=== PATIENT | male | born 1970 ===

== ENCOUNTER 2022-10-05 06:09 | Inpatient (IN) ==
[~2022-10-05 06:09] MED LIST: Buffered Lidocaine 1% SYRIN 1 ml INTRADERM ONE; Ertapenem 1 GM in NS 0.9% 50 ML BAG IVPB SCH; Lactated Ringers 1000 ml BAG 1,000 ML IV SCH; Naloxone 0.4 mg VIAL 0.4 mg/ml 1 ml VIAL IV PRN; Ondansetron 4 mg VIAL 2 MG/ML 2 ml VIAL IV PRN; Prochlorperazine 5 mg/ml 2 ml VIAL (10 mg) IV PRN
[2022-10-05] MEDS ORDERED: Bupivacaine 0.5% SDV PF 30ML VIAL ONE (07:08)
[2022-10-05] MEDS ORDERED: Propofol 10 MG/ML 20 ML BTL ONE (07:17)
[2022-10-05] MEDS ORDERED: Lidocaine 2% PF 5 ML VIAL ONE (07:17)
[2022-10-05] MEDS ORDERED: fentaNYL 100 mcg/2 ml 50 MCG/ML VIAL ONE ×2 (07:18→12:19)
[2022-10-05] MEDS ORDERED: Rocuronium 50 mg VIAL 10 mg/ml 5 ml VIAL (50 mg) ONE ×3 (07:18→10:26)
[2022-10-05] MEDS ORDERED: Midazolam 2 mg/2 ml VIAL 1 mg/ml 2 ml VIAL (2 mg) ONE (07:26)
[2022-10-05] MEDS ORDERED: Dexamethasone IV 4 MG/ML VIAL 1 ml VIAL ONE ×2 (08:13)
[2022-10-05] MEDS ORDERED: Acetaminophen IV 1 GM/100ML 1,000 MG/100 ML BAG IV ONE (08:28)
[2022-10-05] MEDS ORDERED: Labetalol IV 5 MG/ML 20 ml VIAL ONE (08:31)
[2022-10-05] MEDS ORDERED: HYDROmorphone 0.5 MG/0.5 ML SYRINGE ONE (08:36)
[2022-10-05] MEDS ORDERED: Ondansetron 4 mg VIAL 2 MG/ML 2 ml VIAL ONE ×2 (09:53→12:30)
[2022-10-05] MEDS: fentaNYL 100 mcg/2 ml 50 MCG/ML VIAL IV PRN ×2 (12:22→12:39)
[2022-10-05] MEDS ORDERED: Acetaminophen IV 1 GM/100ML 1,000 MG/100 ML BAG IV SCH (12:30)
[2022-10-05] MEDS ORDERED: Prochlorperazine 5 mg/ml 2 ml VIAL (10 mg) ONE (12:44)
[2022-10-05] MEDS ORDERED: HYDROmorphone 1 MG/1 ML SYRINGE ONE (12:59)
[2022-10-05] MEDS: HYDROmorphone 1 MG/1 ML SYRINGE IV PRN ×3 (13:00→13:21)
[2022-10-05] MEDS ORDERED: Metoclopramide 5 MG/ML VIAL (10 mg) ONE (13:44)
[2022-10-05] MEDS ORDERED: Scopolamine 1 mg/72hr PATCH ONE (14:18)
[2022-10-05] MEDS: Lactated Ringers 1000 ml BAG 1,000 ML IV SCH (15:08)
[2022-10-05] MEDS: Heparin 5000 UNITS/ML 1 mL VIAL SUBCUT SCH ×2 (15:13→22:30)
[2022-10-05] MEDS: HYDROmorphone 1 MG/1 ML SYRINGE IV SLOW PU PRN ×2 (15:26→20:52)
[2022-10-05] MEDS ORDERED: Metoclopramide 5 MG/ML VIAL (10 mg) IV SLOW PU ONE (15:45)
[2022-10-05] MEDS: Acetaminophen IV 1 GM/100ML 1,000 MG/100 ML BAG IV SCH ×2 (16:07→22:33)
[2022-10-05 22:13] LABS: High Sensitivity Troponin 1 Hr 5 pg/mL (<20)
[2022-10-05] MEDS ORDERED: Al Hydrox/Mg Hydrox/Simet LIQ 30 ML UDC PO PRN (23:42)
[2022-10-06] MEDS: Lactated Ringers 1000 ml BAG 1,000 ML IV SCH (02:52)
[2022-10-06] MEDS: Acetaminophen IV 1 GM/100ML 1,000 MG/100 ML BAG IV SCH ×5 (03:14→23:41)
[2022-10-06] MEDS: Heparin 5000 UNITS/ML 1 mL VIAL SUBCUT SCH (05:35)
[2022-10-06] MEDS: HYDROmorphone 1 MG/1 ML SYRINGE IV SLOW PU PRN (05:37)
[2022-10-06 05:55] LABS: ABS Lymphocytes 1.7 10^3/ul (1.0-4.8); ABS Monocytes 1.1 10^3/ul (0-0.8); ABS Neutrophils 9.2 10^3/ul (1.5-7.7); Eosinophil % 0.1 %; Hematocrit 38 % (42-52); Hemoglobin 12.8 g/dL (14.0-18.0); Lymphocyte % 14.2 %; Mean Corpuscular HGB Conc 34 g/dL (31-36); Mean Corpuscular Hemoglobin 30 pg (27-31); Mean Corpuscular Volume 87 fL (80-94); Mean Platelet Volume 7.8 fL (7.4-10.4); Nucleated Red Blood Cells % 0.1; Platelet Count 213 10^3/uL (150-450); Red Blood Count 4.33 10^6 /uL (4.18-5.48); Red Cell Distribution Width 14 % (10-15); White Blood Count 12.2 10^3/uL (3.5-10.8)
[2022-10-06 06:15] LABS: eGFR CKD-EPI 98.2 (>60)
[2022-10-06] MEDS: ESOMEPRAZOLE 20 MG PO SCH ×2 (08:06→09:19)
[2022-10-06] MEDS ORDERED: Lactated Ringers 1000 ml BAG 1,000 ML IV SCH (08:40)
[2022-10-06 12:22] LABS: Hematocrit 38 % (42-52); Hemoglobin 12.8 g/dL (14.0-18.0)
[2022-10-06] MEDS: HYDROmorphone 0.5 MG/0.5 ML SYRINGE IV SLOW PU PRN (13:58)
[2022-10-06] MEDS: Ondansetron 4 mg VIAL 2 MG/ML 2 ml VIAL IV PRN ×2 (16:08→21:41)
[2022-10-06 20:03] LABS: Hematocrit 38 % (42-52)
[2022-10-07] MEDS: HYDROmorphone 1 MG/1 ML SYRINGE IV SLOW PU PRN (03:41)
[2022-10-07] MEDS: Acetaminophen IV 1 GM/100ML 1,000 MG/100 ML BAG IV SCH (03:42)
[2022-10-07 05:36] LABS: ABS Basophils 0.1 10^3/ul (0-0.2); ABS Eosinophils 0.1 10^3/ul (0-0.6); ABS Lymphocytes 0.9 10^3/ul (1.0-4.8); ABS Monocytes 1.4 10^3/ul (0-0.8); ABS Neutrophils 10.3 10^3/ul (1.5-7.7); Eosinophil % 0.7 %; Hematocrit 39 % (42-52); Lymphocyte % 7.2 %; Mean Corpuscular HGB Conc 34 g/dL (31-36); Mean Corpuscular Hemoglobin 30 pg (27-31); Mean Corpuscular Volume 88 fL (80-94); Mean Platelet Volume 7.8 fL (7.4-10.4); Platelet Count 210 10^3/uL (150-450); Red Blood Count 4.37 10^6 /uL (4.18-5.48); Red Cell Distribution Width 14 % (10-15); White Blood Count 12.8 10^3/uL (3.5-10.8)
[2022-10-07 06:11] LABS: Calcium 8.3 mg/dL (8.6-10.3); Potassium 3.7 mmol/L (3.5-5.0); eGFR CKD-EPI 99.5 (>60)
[2022-10-07] MEDS: ESOMEPRAZOLE 20 MG PO SCH (08:25)
[2022-10-07] MEDS: HYDROmorphone 0.5 MG/0.5 ML SYRINGE IV SLOW PU PRN ×3 (12:15→20:47)
[2022-10-07] MEDS: Ondansetron 4 mg VIAL 2 MG/ML 2 ml VIAL IV PRN (16:20)
[2022-10-08] MEDS: HYDROmorphone 0.5 MG/0.5 ML SYRINGE IV SLOW PU PRN (02:30)
[2022-10-08] MEDS: Ondansetron 4 mg VIAL 2 MG/ML 2 ml VIAL IV PRN (07:02)
[2022-10-08 07:33] VITALS: BP 106/76
[2022-10-08] MEDS: ESOMEPRAZOLE 20 MG PO SCH (08:36)
== END 2022-10-08 10:24 | disposition home or self-care (01) | DRG 221 ==
LOC: AA 06:09 → SSU 12:16
PROVIDERS: ADMIT Surgery; ATTEND Surgery